=== PATIENT | male | born 1995 ===

== ENCOUNTER 2016-06-14 15:23 | Emergency (ER) | payer MEDICAID ==
[2016-06-14 15:39] VITALS: BP 118/63; PULSE 104; RESP 20; TEMP 98.2; O2SAT 97
--- NOTE | 2016-06-14 16:10 | ED PDOC ---
HPI: CCC, URI, Sore Throat Time Seen by Provider: 06/14/16 16:01 Chief Complaint (Nursing): ENT Problem Chief Complaint (Provider): Ear Pain History Per: Patient, Family (mother) History/Exam Limitations: no limitations Have you had recent travel within the past 21 days to any of the following countries: [place], [place], [place] or [place]?: No Onset/Duration Of Symptoms: Days (x3) Current Symptoms Are (Timing): Still Present Associated Symptoms: Cough (mild), Nasal Congestion. denies: Fever, Chills, Sore Throat Ear Symptoms: Left: Ear Pain, Ear Fullness, Decreased Hearing, Right: Ear Pain, Ear Fullness, Decreased Hearing Severity: Moderate Additional Complaint(s): Vernon Murrieta is a 20 year old male, with no pertinent past medical history, who presents to the ED on 06/14/16, accompanied by his mother, for the evaluation of moderate, bilateral ear pain that he has experienced x3 days. Associated feelings of fullness/decreased hearing also noted bilaterally in addition to nasal congestion and a mild, nonproductive cough. Denies fever, chills, ear drainage, sinus pain, sore throat or recent sick contacts. Has taken no medications for symptom relief prior to arrival. PMD: Marina Barlow Past Medical History Reviewed: Historical Data, Nursing Documentation, Vital Signs Vital Signs: Last Vital Signs Temp 98.2 F 06/14/16 15:39 Pulse 104 H 06/14/16 15:39 Resp 20 06/14/16 15:39 BP 118/63 06/14/16 15:39 Pulse Ox 97 06/14/16 16:16 - Medical History PMH: No Chronic Diseases - Surgical History Surgical History: No Surg Hx - Family History Family History: States: Unknown Family Hx - Living Arrangements Living Arrangements: With Family - Home Medications Home Medications: Ambulatory Orders Medication Instructions Recorded Non-Formulary 1 ea XX DAILY #1 ea 06/14/16 Pseudoephedrine [Pseudoephedrine 30 mg PO BID #30 tab 06/14/16 HCl] - Allergies Allergies/Adverse Reactions: Allergies Allergy/AdvReac Type Severity Reaction Status Date / Time No Known Allergies Allergy Verified 06/14/16 15:38 Review of Systems Constitutional: Negative for: Fever, Chills ENT: Positive for: Ear Pain (b/l, in addition to feelings of fullness and decreased hearing), Nose Congestion. Negative for: Ear Discharge, Throat Pain, Other (no sinus pain) Respiratory: Positive for: Cough. Negative for: Sputum Physical Exam - Reviewed Nursing Documentation Reviewed: Yes Vital Signs Reviewed: Yes - Physical Exam Appears: Positive for: Non-toxic, No Acute Distress Head Exam: Positive for: ATRAUMATIC, NORMOCEPHALIC ENT: Positive for: TM Is/Are (bulging left TM, retracted right TM; no erythema, exudates, pinna/tragal tenderness or swelling of external auditory canal), Other (nontender frontal and maxillary sinuses). Negative for: Nasal Congestion (no swelling of nasal turbinates), Pharyngeal Erythema, Tonsillar Exudate, Tonsillar Swelling (no uvular swelling) Cardiovascular/Chest: Positive for: Regular Rate, Rhythm. Negative for: Murmur Respiratory: Positive for: Normal Breath Sounds. Negative for: Respiratory Distress Neurologic/Psych: Positive for: Alert, Oriented - ECG O2 Sat by Pulse Oximetry: 97 (RA) Pulse Ox Interpretation: Normal Medical Decision Making Medical Decision Makin:01 Initial Impression: congestion of both ears 16:14 Patient is medically stable and requires no emergent treatment in the ED at this time. Patient will be discharged home with Rx for Pseudoephedrine HCl as well as instructions to take Motrin/Tylenol as needed for relief of pain. Counseling was provided and all questions were answered regarding diagnosis and need for follow up with his PMD should symptoms not improve. There is agreement to discharge plan. Return if symptoms persist or worsen. Clinical Impression: congestion of both ears Scribe Attestation: Documented by Jenny Henriquez, acting as a scribe for Aretha Agustin PA-C. Provider Scribe Attestation: All medical record entries made by the Scribe were at my direction and personally dictated by me. I have reviewed the chart and agree that the record accurately reflects my personal performance of the history, physical exam, medical decision making, and the department course for this patient. I have also personally directed, reviewed, and agree with the discharge instructions and disposition. Disposition - Clinical Impression Clinical Impression: Congestion of both ears - Patient ED Disposition Is Patient to be Admitted: No Counseled Patient/Family Regarding: Diagnosis, Rx Given - Disposition Disposition: Routine/Home Disposition Time: 16:14 Prescriptions: Non-Formulary 1 ea XX DAILY #1 ea Pseudoephedrine [Pseudoephedrine HCl] 30 mg PO BID #30 tab Instructions: Rhinosinusitis (ED), Earache (ED)
== END 2016-06-14 16:27 | disposition home or self-care (01) ==
LOC: H.ER 15:23
DX: H93.8X3 Other specified disorders of ear, bilateral (principal)

== ENCOUNTER 2017-03-14 21:15 | Emergency (ER) | payer OTHER, MEDICAID ==
[2017-03-14 21:24] VITALS: BP 119/63; PULSE 83; RESP 16; TEMP 97.6; O2SAT 100
--- NOTE | 2017-03-14 21:35 | ED PDOC ---
Upper Extremity Pain/Injury Time Seen by Provider: 03/14/17 21:25 Chief Complaint (Nursing): Upper Extremity Problem/Injury Chief Complaint (Provider): Left Hand Injury History Per: Patient History/Exam Limitations: no limitations Onset/Duration Of Symptoms: Mins Current Symptoms Are (Timing): Still Present Additional Complaint(s): Vernon Murrieta, a 21 year old male, presents to the the ED with a laceration to his left hand. 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 Denies loss of sensation. PMD: Marina Lozano Past Medical History Reviewed: Historical Data, Nursing Documentation, Vital Signs Vital Signs: Last Vital Signs Temp 97.6 F 03/14/17 21:23 Pulse 83 03/14/17 21:23 Resp 16 03/14/17 21:23 BP 119/63 03/14/17 21:23 Pulse Ox 100 03/14/17 21:23 - Medical History PMH: No Chronic Diseases - Family History Family History: States: Unknown Family Hx - Living Arrangements Living Arrangements: With Family - Social History Current smoker - smoking cessation education provided: No Ex-Smoker (has not smoked in the last 12 months): No Alcohol: None Drugs: Denies - Home Medications Home Medications: Ambulatory Orders Medication Instructions Recorded Non-Formulary 1 ea XX DAILY #1 ea 06/14/16 Pseudoephedrine [Pseudoephedrine 30 mg PO BID #30 tab 06/14/16 HCl] Cephalexin [cephalexin] 500 mg PO BID #20 cap 03/14/17 - Allergies Allergies/Adverse Reactions: Allergies Allergy/AdvReac Type Severity Reaction Status Date / Time No Known Allergies Allergy Verified 06/14/16 15:38 Review of Systems ROS Statement: Except As Marked, All Systems Reviewed And Found Negative Musculoskeletal: Positive for: Other (laceration to left ) Physical Exam - Reviewed Nursing Documentation Reviewed: Yes Vital Signs Reviewed: Yes - Physical Exam Appears: Positive for: Non-toxic, No Acute Distress Head Exam: Positive for: ATRAUMATIC, NORMAL INSPECTION, NORMOCEPHALIC Skin: Positive for: Normal Color, Warm, Dry. Negative for: Rash Extremity: Positive for: Normal ROM, Other (1 inch laceration to left hand between web space of first and second digit; mild active bleeding noted. subq fat injury noted. no muscle involvment noted. ). Negative for: Tenderness, Deformity, Swelling Neurologic/Psych: Positive for: Alert, Oriented - ECG ECG Rhythm: Positive for: Normal QRS, Normal ST Segment, Sinus Rhythm O2 Sat by Pulse Oximetry: 100 (RA) Pulse Ox Interpretation: Normal - Radiology X-Ray: Interpreted by Me X-Ray Interpretation: No Acute Disease Medical Decision Making Medical Decision Makin Initial Impression 21 year old male presenting with laceration to left hand Initial Plan: * Reevaluation * tetanus/rocephin IM * pt received lac repair * instructions provided for wound care. * area of laceration is in a area of very low tension no indication for splint at this time. * Scribe Attestation Documented by Maribel Loo acting as a scribe for Aretha Agustin PA-C. MD Scribe Attestation All medical record entries made by the Scribe were at my direction and personally dictated by me. I have reviewed the chart and agree that the record accurately reflects my personal performance of the history, physical exam, medical decision making, and the department course for this patient. I have also personally directed, reviewed, and agree with the discharge instructions and disposition. Procedures - Laceration/Wound Repair left hand Wound Length (cm): 1 (inch) Wound's Depth, Shape: linear, contused tissue Wound Explored: clean Irrigated w/ Saline (ccs): 500 Betadine Prep?: No Anesthesia: 1% Lidocaine Volume Anesthetic (ccs): 5 Wound Debrided: moderate Wound Repaired With: Sutures Suture Size/Type: 4:0, nylon Number of Sutures: 7 Layer Closure?: Yes Deep Layer Suture Size/Type: 5:0 (3 sutures placed. vicry) Number Deep Layer Sutures: 3 Wound Complexity: Intermediate Sterile Dressing Applied?: Yes Disposition - Clinical Impression Clinical Impression: Laceration, Tetanus - Patient ED Disposition Is Patient to be Admitted: No Counseled Patient/Family Regarding: Studies Performed, Diagnosis, Need For Followup, Rx Given - Disposition Referrals: Butch Hardy MD [Medical Doctor] - Disposition: Routine/Home Disposition Time: 22:50 Condition: STABLE Additional Instructions: instructions: 1. do not wet wound 2. do not cover wound too tightly 3. take your antibiotics 4. have your sutures taken out in 8-9days. Prescriptions: Cephalexin [cephalexin] 500 mg PO BID #20 cap Instructions: Care For Your Stitches (ED), Laceration (DC) Forms: [facility] ED School/Work Excuse
[2017-03-14] MEDS: Lidocaine 1% Inj (20ml) IJ STA (22:00)
[2017-03-14] MEDS ORDERED: cefTRIAXone (Rocephin) 250 mg Inj IM ONE (22:47)
[2017-03-14] MEDS ORDERED: cefTRIAXone (Rocephin) 250 mg Inj ONE (22:55)
[2017-03-14] MEDS ORDERED: Sterile Water 10 ML IV ONE (22:56)
[2017-03-14] MEDS: cefTRIAXone (Rocephin) 250 mg Inj IM ONE (23:03)
--- NOTE | 2017-03-15 09:51 | RAD ---
PROCEDURE: Left Hand Radiographs. HISTORY: hand injury COMPARISON: None. FINDINGS: BONES: Normal. No fracture. JOINTS: Normal. No osteoarthritic changes. SOFT TISSUES: Normal. OTHER FINDINGS: None. IMPRESSION: Normal left hand radiographs.
== END 2017-03-14 23:10 | disposition home or self-care (01) ==
LOC: H.ER 21:15
DX: S61.412A Laceration without foreign body of left hand, initial encounter (principal); W26.0XXA Contact with knife, initial encounter; Y99.0 Civilian activity done for income or pay
CPT/HCPCS: 12001; 73130; 90471; 90715; 96372; 99284; J0696

== ENCOUNTER 2017-03-25 15:37 | Emergency (ER) | payer BC, MEDICAID ==
[2017-03-25 15:42] VITALS: BP 120/56; PULSE 65; RESP 16; TEMP 97.6; O2SAT 99
--- NOTE | 2017-03-25 16:13 | ED PDOC ---
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 pt was given splint at time of ER d/c and abx, completed abx and state he has kept the splint on, but admits to moving the hand -creating tension on sutured site. no pain to hand, no drainage at site. right hand dominant. Past Medical History Reviewed: Historical Data, Nursing Documentation, Vital Signs Vital Signs: Last Vital Signs Temp 97.6 F 03/25/17 15:38 Pulse 65 03/25/17 15:38 Resp 16 03/25/17 15:38 BP 120/56 L 03/25/17 15:38 Pulse Ox 99 03/25/17 15:38 - Medical History PMH: No Chronic Diseases - Family History Family History: States: Unknown Family Hx - Home Medications Home Medications: Ambulatory Orders Medication Instructions Recorded Non-Formulary 1 ea XX DAILY #1 ea 06/14/16 Pseudoephedrine [Pseudoephedrine 30 mg PO BID #30 tab 06/14/16 HCl] Cephalexin [cephalexin] 500 mg PO BID #20 cap 03/14/17 - Allergies Allergies/Adverse Reactions: Allergies Allergy/AdvReac Type Severity Reaction Status Date / Time No Known Allergies Allergy Verified 06/14/16 15:38 Review of Systems ROS Statement: Except As Marked, All Systems Reviewed And Found Negative Musculoskeletal: Positive for: Hand Pain Physical Exam - Reviewed Nursing Documentation Reviewed: Yes Vital Signs Reviewed: Yes - Physical Exam Appears: Positive for: Well, Non-toxic, No Acute Distress Skin: Positive for: Normal Color, Warm, DRY Cardiovascular/Chest: Positive for: Regular Rate, Rhythm Respiratory: Positive for: CNT, Normal Breath Sounds Extremity: Positive for: Other (hand injury: right hand on 1st digit wound noted no deshesicens however incompletele healing of wound-possible premature removal of sutures or poor wound healing. ) Neurologic/Psych: Positive for: Alert, Oriented - ECG O2 Sat by Pulse Oximetry: 99 Medical Decision Making Medical Decision Making: dermabond applied splint applied and givne contact for hand surgery. advised not to wet wound or move hand to allow wound to heal well. Disposition - Clinical Impression Clinical Impression: Encounter for wound re-check - Patient ED Disposition Is Patient to be Admitted: No Counseled Patient/Family Regarding: Studies Performed, Diagnosis, Need For Followup - Disposition Referrals: Butch Hardy MD [Medical Doctor] - Disposition: Routine/Home Disposition Time: 16:33 Condition: STABLE Instructions: Chronic Wound Care (ED)
== END 2017-03-25 16:41 | disposition home or self-care (01) ==
LOC: H.ER 15:37
DX: Z48.01 Encounter for change or removal of surgical wound dressing (principal)